=== PATIENT | male | born 1960 | race Two or more races ===

== ENCOUNTER → 2016-11-23 | Day surgery (SDC) | payer OTHER ==
[~2016-11-23] MED LIST: IV RINGERS,LACTATED 1000ML 1,000 ML IV SCH; LIDOCAINE 1% 1 ML SYRINGE. ID PRN; LIDOCAINE 2% PF Vial for OR 5 ML VIAL. ONE; MIDAZOLAM HCL/PF 2 MG/2 ML VIAL. IV PRN; PROPOFOL 40 ML IV ONE; fentaNYL PF VIAL 100 MCG/2 ML VIAL IV PRN
--- NOTE | 2016-11-23 10:36 | PDOC1 ---
HISTORY & PHYSICAL H&P 11/23/16Nomi Arshad [id number] 1960 10/22/2016 01:00 PM 05/09 [employer], [employer] OUR PATIENTS COME FIRST [address] [place] [id number] Ph. [phone] Patient: Nomi Arshad Date of : 1960 Date: 10/22/2016 1:00 PM Visit Type: Office Visit This 55 year old male presents for Abdominal pain and Screening colonoscopy. History of Present Illness: 1. Abdominal pain Duration is 3 Months. Location is epigastric, midline. There is no radiation. The patient describes it as aching, bloating and sharp. Denies aggravating factors. Denies relieving factors. 2. Screening colonoscopy No prior screening. Denies risk factors. Pertinent negatives include abdominal pain, change in bowel habits, change in stool caliber, constipation, decreased appetite, diarrhea, melena, nausea, rectal bleeding, vomiting, weight gain and weight loss. Additional information: No family history of colon cancer , No family history of Crohn's/colitis and No NSAID/ASA use. INTAKE COMMENTS: Intake Comments: Nurse Note: the pt is here today with complaints of abd pain. PROBLEM LIST: Problem Description Onset Date Hemorrhoids 06/20/2012 Hyperlipidemia 06/20/2012 Abnormal glucose level 06/20/2012 PAST MEDICAL/SURGICAL HISTORY (Detailed) Disease/disorder Onset Date Management Date Comments borderline DM 2010 diet alone Allergies: Ingredient Reaction Medication Name Comment NO KNOWN DRUG ALLERGIES REVIEW OF SYSTEMS System Neg/Pos Details Constitutional Negative Chills, fever, malaise, weight gain and weight loss. ENMT Negative Sore throat. Eyes Negative Double vision. Respiratory Negative Dyspnea and wheezing. Cardio Negative Chest pain and irregular heartbeat/palpitations. GI Positive See HPI. GI Negative Abdominal pain, change in bowel habits, change in stool caliber, constipation, decreased appetite, diarrhea, melena, nausea, see HPI, rectal bleeding and vomiting. Negative Dysuria and hematuria. Endocrine Negative Cold intolerance and heat intolerance. Psych Negative Anxiety. Integumentary Negative Hives and rash. MS Negative Joint pain. Moise/Lymph Negative Easy bleeding and easy bruising. Allergic/Immuno Negative Food allergies. VITAL SIGNS Time BP mm/Hg Pulse /min Resp /min Temp F Ht ft Ht in Ht cm Wt lb Wt kg BMI kg/ m2 BSA m2 O2 Sat% 12:30 PM 128/74 60 97.9 0.0 65.00 165.10 214.80 97.432 35.74 97 Time Measured by 12:30 PM Rowena Strange PHYSICAL EXAM: Exam Findings Details Constitutional Normal Well developed. Eyes Normal Conjunctiva - Right: Normal, Left: Normal. Sclera - Right: Normal, Left: Normal. Nasopharynx Normal Lips/teeth/gums - Normal. Neck Exam Normal Inspection - Normal. Thyroid gland - Normal. Respiratory Normal Inspection - Normal. Auscultation - Normal. Cardiovascular Normal Regular rate and rhythm. No murmurs, gallops, or rubs. Vascular Normal Pulses - Carotids: Normal, Femoral: Normal, Dorsalis pedis: Normal. Abdomen Normal Inspection - Normal. Anterior palpation - No guarding. No abdominal tenderness. No hepatic enlargement. No splenic enlargement. No hernia. No ascites. Skin Normal Inspection - Normal. Extremity Normal No edema. Psychiatric * Oriented to time, place, person and situation. Psychiatric Normal Appropriate mood and effect. Assessment/Plan # Detail Type Description 1. Assessment Pain of upper abdomen (R10.10). Patient Plan schedule EGD Plan Orders Further diagnostic evaluations ordered today include(s) EGD to be performed today. 2. Assessment Encounter for screening colonoscopy (Z12.11). Patient Plan schedule colonoscopy Plan Orders Further diagnostic evaluations ordered today include(s) Colonoscopy to be performed today. He is to schedule a follow-up visit with Meghna Malin MD upon completion of work-up Electronically signed by: Meghna Malin MD 10/22/2016 02:41 PM Document generated by: Meghna Malin 10/22/2016 02:41 PM Silvia Ramesh MD, Family Practice; Rony Tavera MD Internal Medicine; Blanca Forte MD, Internal Medicine; Camila Malin MD Internal Medicine; Meghna Malin MD, Gastroenterology; Elias Diaz MD, Rheumatology, S. Will Alejandro, Physical Medicine/Sanjeevab Dee Argueta APRN ------ 11/23/16 Patient seen and examined. No change in H&P. MEGHNA MALIN MD Nov 23, 2016 10:36
[2016-11-23 12:09] VITALS: BP 142/84
--- NOTE | 2016-11-24 16:33 | PATHOLOGY ---
PATHOLOGY REPORT * * * * * * * * FINAL DIAGNOSIS: Gastric biopsy, antrum: - Active chronic gastritis, moderate, with Helicobacter organisms identified. COMMENT: Sections of the gastric biopsy reveal segments of gastric antral mucosa showing congestion and moderate active chronic inflammation. An immunoperoxidase stain for Helicobacter is obtained. There are focally prominent numbers of Helicobacter organisms identified. There is no evidence of malignancy. (JPM:pit; 11/24/2016) REPORT ELECTRONICALLY SIGNED BY: Jonathan Gutierrez M.D. DATE/TIME: 11/24/2016 16:33 * * * * * * * * GROSS PATHOLOGY: Received in formalin labeled "Nomi Palm, antrum," are two segments of chavez soft tissue measuring 0.2 and 0.3 cm in maximum dimension. The specimen is submitted entirely in cassette A1. (JPM; 11/23/16) INITIAL CPT CODE(S): A; 16633, 63618 Professional services performed [place] [address] Technical services performed by [facility] at [address] [place] [address]. SPECIMEN(S) RECEIVED: A.Antral biopsy CLINICAL HISTORY: Abdominal pain, screening; gastritis PATIENT: NOMI PALM /AGE: 8 1960 (Age: 55) PATIENT #: [id number] ALT CASE #: SPECIMEN COLLECTION DATE: 11/23/2016 SPECIMEN RECEIVED DATE: 11/23/2016 [facility] - [address] [place] [address] - PHONE: [phone] * * * END OF REPORT * * *
== END | disposition home or self-care (01) ==
LOC: SURG 09:48
PROVIDERS: ATTEND Internal Medicine Gastroenterology
DX: K21.0 Gastro-esophageal reflux disease with esophagitis (principal); K29.70 Gastritis, unspecified, without bleeding; E78.5 Hyperlipidemia, unspecified; E11.9 Type 2 diabetes mellitus without complications; Z86.39 Personal history of other endocrine, nutritional and metabolic disease
CPT/HCPCS: 43239; 88305; 88342; J2001; J2704